=== PATIENT | male | born 1965 | race Caucasian/White ===

== ENCOUNTER 2019-12-16 12:21 | Outpatient (CLI) | payer BC ==
--- NOTE | 2019-12-16 13:03 | RAD ---
4 views cervical spine: 12/16/2019 HISTORY: Spondylolisthesis, prior cervical surgery FINDINGS: Anterior discectomy and fusion hardware noted at C6-7. There is disc space narrowing with a nterior osteophyte formation at C5-6. Open-mouth odontoid view demonstrates a normal-appearing dens and C1-2 articulation. No evidence for hardware failure. No anterolisthesis or retrolisthesis seen. IMPRESSION: Postoperative and degenerative change within the cervical spine as detailed above.
--- NOTE | 2019-12-16 14:28 | MRI ---
Exam: MRI cervical spine without contrast HISTORY: Spondylosis.. COMPARISON: 02/02/2006. FINDINGS: Metallic susceptibility artifact secondary to C6-C7 fusion hardware. Appropriate T1 marrow signal in tensity of the cervical vertebra. Cervical spine vertebral body heights are maintained. There is no fracture. No significant STIR hyperintensity to suggest ligamentous injury or vertebral body edema. Visualized brain parenchyma, cervicomedullary junction, cervical cord and the upper thoracic cord hav e a normal size. C2-C3: Adequate disc hydration. No posterior disc abnormality. No significant central canal stenosis or significant neural foraminal narrowing. C3-C4: Adequate disc hydration. No posterior disc abnormality. No significant central canal stenosis. Moderate right foraminal narrowing due to uncovertebral hypertrophy. Patent left neural foramen. C4-C5: Broad-based disc bulge abuts the thecal sac. Mass effect upon the cervical cord. Moderate cent ral canal stenosis. Moderate to severe right neural foraminal narrowing. Patent left neural foramen. C5-C6: Broad-based disc osteophyte complex abuts the thecal sac. Mass effect upon the right hemicord. Mild central canal stenosis. No cord signal abnormality. Moderate right neural foraminal narrowing. Patent left neural foramen. C6-C7: Broad-based disc osteophyte complex. Mild to moderate central canal stenosis. Moderate bilater al neural foraminal narrowing due to uncovertebral hypertrophy. C7-T1: No posterior disc abnormality. No significant central canal stenosis or significant neural for aminal narrowing. IMPRESSION: 1. Cervical fusion at C6-C7. 2. Varying degrees of central canal stenosis and neural foraminal narrowing as detailed above. Transcribed Date/Time: 12/16/2019 2:47 PM
--- NOTE | 2019-12-16 14:46 | MRI ---
LUMBAR SPINE MRI WITH AND WITHOUT CONTRAST: COMPARISON: 08/23/2005. 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 Low back pain with numbness down the legs for 6 yovanny hs. FINDINGS: Appropriate T1 marrow signal intensity of the lumbar vertebrae. Lumbar spine vertebral body height is maintained. There is no fracture. No significant STIR hyperintensity to suggest vertebral body edema or ligamentous injury. Appropriate signal intensity in the visualized paraspinal muscles and solid organs. Conus medullaris terminates at the mid L1 level. Postcontrast images do not demonstrate any abnormal enhancement within the thecal sac including the c auda equina and conus medullaris. There is no abnormal enhancement with regards to the vertebral bodies. Spondylolisthesis: L4-L5: 4.2 mm of retrolisthesis. Type II Modic changes at the L4-L5 level. T12-L1: Adequate disc hydration. No significant central canal stenosis or significant neural foramina l narrowing. L1-L2: Adequate disc hydration. No significant loss of disc space height. Broad-based disc bulge abut s the thecal sac. Mild central canal stenosis. Patent bilateral neural foramina. L2-L3: Adequate disc hydration. No significant loss of disc space height. Broad-based disc bulge, lig ament flavum thickening and facet hypertrophy result in moderate to severe central canal stenosis. The degree of central canal stenosis or significant progressed since the previous exam. Patent bilate ral neural foramina. L3-L4: Adequate disc hydration. Based disc bulge, ligament flavum thickening and facet hypertrophy ar e present. There is an associated midline annular fissure. Moderate to severe central canal stenosis. Patent bilateral neural foramina. L5 4-L5: Progression of degenerative change. There is worsening desiccation and increased loss of dis c space height. Broad-based disc bulge, ligament flavum thickening and facet hypertrophy result in moderate central canal stenosis. Disc material abuts but does not obscure the traversing right L5 ner ve root. There is mass effect and obscuration the traversing left L5 nerve root secondary to disc material and ligamentum flavum thickening. Moderate bilateral neural foraminal narrowing. L5-S1: Vacuum disc phenomenon. Broad-based disc bulge with a right subarticular component. There is m ass effect without obscuration of the traversing right S1 nerve root. Left subarticular zone is patent. No significant stenosis of the thecal sac. Severe right and moderate to severe left neural fo ramina. T1 and T2 hypointense focus without enhancement just superior to the L5-S1 disc space which may represent a small sequestered disc fragment measuring 0.6 cm. Cluster disc abuts but does n ot obscure the exiting right L5 nerve root. IMPRESSION: Extensive degenerative changes of the lumbar spine as detailed above. Transcribed Date/Time: 12/16/2019 2:56 PM
== END 2019-12-16 12:22 | disposition home or self-care (01) ==
LOC: SCSMRI 12:21
PROVIDERS: ATTEND Neurological Surgery
DX: M47.12 Other spondylosis with myelopathy, cervical region (principal); M47.16 Other spondylosis with myelopathy, lumbar region; M51.36 Other intervertebral disc degeneration, lumbar region; M48.02 Spinal stenosis, cervical region; Z98.1 Arthrodesis status
CPT/HCPCS: 72040; 72141; 72158

== ENCOUNTER 2020-05-13 10:23 | Outpatient (CLI) | payer BC ==
[2020-04-08 16:00] LABS: Hemoglobin 14.6 g/dL (13.5-17.5); Mean Corpuscular HGB CONC 31.7 g/dL (32.0-36.0); Mean Corpuscular Hemoglobin 26.5 pg (27.0-33.0); Mean Corpuscular Volume 83.5 fl (81.2-95.1); Mean Platelet Volume 9.6 fl (7.4-10.4); Platelet Count 380 10x3/uL (150-450); RBC Distribution Width 14.6 % (11.5-14.5); Red Blood Cell (RBC) Count 5.51 10x6/uL (4.32-5.72); White Blood Cell (WBC) Count 13.1 10x3/uL (3.5-10.5)
[2020-04-08 16:01] LABS: Anion Gap 16 mmol/L (10-20); BUN (Urea Nitrogen) 21 mg/dL (8.4-25.7); Calc. Creatinine Clearance 0 mL/min (70-130); Calcium 9.5 mg/dL (7.8-10.44); Carbon Dioxide 25 mmol/L (22-29); Chloride 102 mmol/L (98-107); Glucose 78 mg/dL (70-105); Potassium 4.5 mmol/L (3.5-5.1); Sodium 138 mmol/L (136-145)
[2020-04-09 05:15] LABS: SARS-CoV-2 PCR by NAA Not Detected (NotDetected)
[2020-05-13 12:14] LABS: Anion Gap 14 mmol/L (10-20); BUN (Urea Nitrogen) 20 mg/dL (8.4-25.7); Calc. Creatinine Clearance 0 mL/min (70-130); Calcium 9.3 mg/dL (7.8-10.44); Carbon Dioxide 27 mmol/L (22-29); Chloride 105 mmol/L (98-107); Glucose 103 mg/dL (70-105); Potassium 4.5 mmol/L (3.5-5.1); Sodium 141 mmol/L (136-145)
[2020-05-13 12:27] LABS: Hemoglobin 14.1 g/dL (13.5-17.5); Mean Corpuscular HGB CONC 33.1 g/dL (32.0-36.0); Mean Corpuscular Hemoglobin 27.8 pg (27.0-33.0); Mean Corpuscular Volume 83.9 fl (81.2-95.1); Platelet Count 299 10x3/uL (150-450); RBC Distribution Width 14.1 % (11.5-14.5); Red Blood Cell (RBC) Count 5.08 10x6/uL (4.32-5.72); White Blood Cell (WBC) Count 8.6 10x3/uL (3.5-10.5)
[2020-05-13 22:07] LABS: SARS-CoV-2 PCR by NAA Not Detected (NotDetected)
== END 2020-05-13 10:24 | disposition home or self-care (01) ==
LOC: LABBT 10:23
PROVIDERS: ATTEND Neurological Surgery
DX: Z01.818 Encounter for other preprocedural examination (principal); Z20.822 Contact with and (suspected) exposure to COVID-19; M54.16 Radiculopathy, lumbar region
CPT/HCPCS: 80048; 85027; 87635; 93005; 93010; U0003; U0005

== ENCOUNTER 2020-05-18 07:51 | Observation (INO) | payer BC ==
[2020-05-15 12:14] VITALS: BMI 25.0
[2020-05-18] MEDS ORDERED: Fentanyl 100 MCG/2 ML VIAL ONE ×2 (11:49→14:35)
[2020-05-18] MEDS ORDERED: Glycopyrrolate 0.2 MG/ML 5 ML SYRINGE ONE (12:08)
[2020-05-18] MEDS ORDERED: Dexamethasone 20 MG/5 ML VIAL ONE (12:08)
[2020-05-18] MEDS ORDERED: Metoclopramide HCl 10 MG/2 ML VIAL ONE (12:08)
[2020-05-18] MEDS ORDERED: Rocuronium Bromide 10 MG/ML (10ML VIAL) ONE (12:08)
[2020-05-18] MEDS ORDERED: Ketorolac Tromethamine 30 MG/ML VIAL ONE (12:08)
[2020-05-18] MEDS ORDERED: PROPOFOL 200 MG/20 ML VIAL ONE (12:08)
[2020-05-18] MEDS ORDERED: Ondansetron PF 4 MG/2 ML Vial ONE (12:08)
[2020-05-18] MEDS ORDERED: Lidocaine 1% PF 5 ML VIAL ONE (12:08)
[2020-05-18] MEDS ORDERED: HYDROmorphone 2 MG/ML VIAL ONE (13:34)
[2020-05-18] MEDS ORDERED: HYDROmorphone 0.5 MG/0.5 ML SYRINGE ONE ×2 (13:58→14:12)
[2020-05-18] MEDS ORDERED: Meperidine HCl/PF 25 MG/ML VIAL ONE (14:00)
[2020-05-18] MEDS ORDERED: Acetaminophen 325 MG/10.15 ML UDCUP ONE (14:24)
[2020-05-18] MEDS ORDERED: tiZANidine HCl 4 MG TAB ONE (14:24)
[2020-05-18] MEDS ORDERED: HYDROcodone/Acetaminophen 5/325 mg Tablet ONE (14:26)
[2020-05-18] MEDS ORDERED: Tamsulosin HCl 0.4 MG CAP ONE (14:28)
[2020-05-18] MEDS ORDERED: Mag-Al 1200 mg/1200 mg/30 ML UDCUP PO PRN (18:30)
[2020-05-18] MEDS ORDERED: diphenhydrAMINE 25 MG CAP PO PRN (18:30)
[2020-05-18] MEDS ORDERED: diphenhydrAMINE 50 MG/ML VIAL IVP PRN (18:30)
[2020-05-18] MEDS ORDERED: Milk Of Magnesia 30 ML UDCUP PO PRN (18:30)
[2020-05-18] MEDS ORDERED: Promethazine 25 MG TAB PO PRN (18:30)
[2020-05-18] MEDS ORDERED: traMADol HCl 50 MG TAB PO PRN (18:30)
[2020-05-18] MEDS ORDERED: Morphine 2 MG/ML VIAL SLOW IVP PRN (18:30)
[2020-05-18] MEDS ORDERED: Promethazine HCl 25 MG/ML VIAL IM PRN (18:30)
[2020-05-18] MEDS ORDERED: Acetaminophen/Codeine 30-300mg Tablet PO PRN ×2 (18:30)
[2020-05-18] MEDS ORDERED: Promethazine HCl 12.5 MG SUPP PR PRN (18:30)
[2020-05-18] MEDS ORDERED: Ondansetron PF 4 MG/2 ML Vial IM PRN (18:30)
[2020-05-18] MEDS: Sodium Chloride 0.9% 1,000 ML IV SCH (18:32)
[2020-05-18] MEDS: traMADol HCl 50 MG TAB PO PRN (20:13)
[2020-05-18] MEDS: tiZANidine HCl 4 MG TAB PO PRN (20:13)
[2020-05-18] MEDS: Morphine 4 MG/ML VIAL SLOW IVP PRN (20:14)
[2020-05-18] MEDS: CEFAZOLIN 2 GM in Premix Bag 1 BAG IVPB SCH (20:15)
[2020-05-18] MEDS ORDERED: CEFAZOLIN 2 GM in Premix Bag 1 BAG IVPB SCH (22:00)
[2020-05-19] MEDS: traMADol HCl 50 MG TAB PO PRN ×2 (02:03→08:37)
[2020-05-19] MEDS: tiZANidine HCl 4 MG TAB PO PRN ×2 (02:03→08:39)
[2020-05-19] MEDS: CEFAZOLIN 2 GM in Premix Bag 1 BAG IVPB SCH (05:04)
[2020-05-19] MEDS: Morphine 4 MG/ML VIAL SLOW IVP PRN (05:05)
[2020-05-19] MEDS ORDERED: Tamsulosin HCl 0.4 MG CAP PO SCH (06:00)
[2020-05-19 07:52] VITALS: BP 101/68; TEMP 98.2
[2020-05-19] MEDS: Sodium Chloride 0.9% 1,000 ML IV SCH (09:45)
== END 2020-05-19 10:36 | disposition home or self-care (01) ==
LOC: SDC 07:51 → SURG A 14:47
PROVIDERS: ADMIT Neurological Surgery; ATTEND Neurological Surgery
PROC: 0SG00AJ Fusion of Lumbar Vertebral Joint with Interbody Fusion Device, Posterior Approach, Anterior Column, Open Approach (ICD-10-PCS; principal; 2020-05-18)
PROC: 0SG30AJ Fusion of Lumbosacral Joint with Interbody Fusion Device, Posterior Approach, Anterior Column, Open Approach (ICD-10-PCS; 2020-05-18)
PROC: 0ST20ZZ Resection of Lumbar Vertebral Disc, Open Approach (ICD-10-PCS; 2020-05-18)
PROC: 0ST40ZZ Resection of Lumbosacral Disc, Open Approach (ICD-10-PCS; 2020-05-18)
DX: M51.16 Intervertebral disc disorders with radiculopathy, lumbar region (principal); Z91.010 Allergy to peanuts
CPT/HCPCS: 76000; 96365; 96366; 96375; 96376; C1713; C1768; G0378; J0690; J1100; J1170; J1885; J2175; J2270; J2405; J2704; J2765; J3010; J3370; J3490

== ENCOUNTER 2020-06-02 09:50 | Outpatient (CLI) | payer BC | END 2020-06-02 09:51 | disposition home or self-care (01) | LOC: TBSIIMAG 09:50 | PROVIDERS: ATTEND Neurological Surgery | DX: M47.26 Other spondylosis with radiculopathy, lumbar region (principal); Z98.890 Other specified postprocedural states | CPT/HCPCS: 72100 ==